=== PATIENT | female | born 1980 | race Caucasian/White ===

== ENCOUNTER 2019-06-27 15:39 | Emergency (ER) | payer OTHER ==
[~2019-06-27] VITALS: Ht 167.6 cm; Wt 86.6 kg
--- OUTSIDE RECORDS SUMMARY | 2019-06-27 15:44 | XMS ---
PreManage Notification: [place] Security Criminal Investigator Events No recent Security Events currently on file CRITERIA MET - [facility] PROVID[facility] There are no care providers on record at this time. Davy has no Care Guidelines for this patient. Deejay VISIT COUNT (12 MO.) 1 CLYDE Rubin TOTAL 1 NOTE: Visits indicate total known visits. ED/C VISIT TRACKING (12 MO.) 06/27/2019 15:40 CL[facility] TYPE: Emergency COMPLAINT: - STOMACH PAIN INPATIENT VISIT TRACKING (12 MO.) No inpatient visits to display in this time frame [email or web address]
[2019-06-27] MEDS ORDERED: PREVACID15 MG PO (16:03)
[2019-06-27] MEDS ORDERED: TUMS200 MG PO (16:04)
[2019-06-27] MEDS ORDERED: ZOFRAN4 MG PO (16:04)
[2019-06-27] MEDS ORDERED: CLARITIN10 MG PO (16:05)
[2019-06-27] MEDS ORDERED: ATIVAN1 MG PO (16:05)
== END 2019-06-27 18:10 | disposition home or self-care (01) ==
LOC: ED 15:39
DX: R10.9 Unspecified abdominal pain (principal); Z88.2 Allergy status to sulfonamides; Z79.899 Other long term (current) drug therapy
CPT/HCPCS: 80053; 81001; 83690; 84703; 85025; 99284